=== PATIENT | female | born 1955 | race Caucasian/White ===

== ENCOUNTER 2017-09-15 05:12 | Emergency (ER) | payer BC ==
[2017-09-15] MEDS ORDERED: Aspirin 81 MG Tab.Chew PO ONE (05:18)
--- NOTE | 2017-09-15 05:41 | EDM.PDOC ---
ED HPI GENERAL MEDICAL PROBLEM - General Chief Complaint: Cardiovascular Problem Stated Complaint: CHEST PAIN Time Seen by Provider: 09/15/17 05:35 Source of Information: Reports: Patient History Limitations: Reports: No Limitations - History of Present Illness INITIAL COMMENTS - FREE TEXT/NARRATIVE: PT ARRIVED WITH A HISTORY OF AT LEAST 2.5 HOURS OF CHEST PRESSURE. sHE WAS ASLEEP AND WAS AWAKENED AT ABOUT 2 AM WITH CHEST PRESSURE. sHE WAS NOT SOB. sHE DID NOT HAVE [place] CHEST PAIN. sHE HAS NO CARDIAC HISTORY. sHE DID FEEL LIKE HER HEART WAS BEATING SOMEWHAT IRATIC. sHE HAS BEEN UNDER A GREAT DEAL OF STRESS BOTH AT HOME AND AT WORK. Onset: Today, Other ( STARTED AT 2 AM. ) Duration: Hour(s):, Other (PT HAS PRESSURE FOR ABOUT 2.5 HOURS. sHE IS PAIN SIDNEY AT THIS TIME. ) Location: Reports: Chest Associated Symptoms: Reports: Chest Pain, Other ( tHIS IS A PRESSURE SENSATION) - Related Data Allergies Allergy/AdvReac Type Severity Reaction Status Date / Time No Known Allergies Allergy Verified 09/15/17 05:37 Home Meds: Home Meds NK [No Known Home Meds] 09/15/17 [History] Social & Family History - Tobacco Use Smoking Status *Q: Never Smoker - Caffeine Use Caffeine Use: Reports: Coffee, Soda, Tea - Recreational Drug Use Recreational Drug Use: No ED ROS GENERAL - Review of Systems Review Of Systems: See Below Constitutional: Reports: No Symptoms HEENT: Reports: No Symptoms Respiratory: Reports: No Symptoms Cardiovascular: Reports: Other (PT HAD ABOUT 2.5 HOURS OF CHEST PRESSURE. V) Endocrine: Reports: No Symptoms GI/Abdominal: Reports: No Symptoms, Other ( sHE DOES ADMIT TO DOING A FAIR AMOUNT OF DRINKING YESTERDAY. ) : Reports: No Symptoms Musculoskeletal: Reports: No Symptoms Skin: Reports: No Symptoms ED EXAM, GENERAL - Physical Exam Exam: See Below Free Text/Narrative:: pT ARRIVED WITH A HISTORY OF A EPISODE OF CHEST PRESSURE. tHIS DID AWAKEN TH PT AT ABOUT 2 am. sHE HAD ABOUT 2.5 HOURS OF CHEST PRESSURE. sHE FELT LIKE SOMEONE WAS SITTING ON HER CHEST. Exam Limited By: No Limitations General Appearance: Alert, No Apparent Distress, Anxious, Other (PT HAS NO PRESSURE AT THIS TIME. sH THINKS IT STOPPED ABOUT 4 THIRTY. ) Ears: Normal TMs Nose: Normal Inspection Throat/Mouth: Normal Inspection Head: Atraumatic Neck: Normal Inspection Respiratory/Chest: No Respiratory Distress Cardiovascular: Regular Rate, Rhythm, Other ( PT DOES SEEM TO HAVE A VARIABLE RATE UP IN THE 120S AND THEN WILL GO DOWN TO THE 80S. ) GI/Abdominal: Soft, Non-Tender (Female) Exam: Deferred Rectal (Female) Exam: Deferred Back Exam: Normal Inspection Extremities: Normal Inspection Neurological: Alert, Oriented, Normal Cognition Psychiatric: Anxious Course - Vital Signs Last Recorded V/S: Last Vital Signs Temp 36.2 C 09/15/17 05:30 Pulse 90 09/15/17 05:30 Resp 17 09/15/17 05:30 BP 193/89 H 09/15/17 05:30 Pulse Ox 96 09/15/17 05:30 - Orders/Labs/Meds Orders: Active Orders 24 hr Category Date Time Status EKG Documentation Completion [RC] ASDIRECTED Care 09/15/17 05:18 Active Chest 1V Frontal [CR] Stat Exams 09/15/17 05:18 Taken EKG 12 Lead [EK] Routine Ther 09/15/17 05:17 Ordered Labs: Laboratory Tests 09/15/17 09/15/17 09/15/17 Range/Units 05:25 05:25 05:25 WBC 4.8 (4.5-11.0) K/uL RBC 3.96 (3.30-5.50) M/uL Hgb 13.3 (12.0-15.0) g/dL Hct 39.4 (36.0-48.0) % MCV 100 H (80-98) fL MCH 34 H (27-31) pg MCHC 34 (32-36) % Plt Count 279 (150-400) K/uL Neut % (Auto) 48 (36-66) % Lymph % (Auto) 40 (24-44) % [place] % (Auto) 10 H (2-6) % Eos % (Auto) 2 (2-4) % Baso % (Auto) 1 (0-1) % Sodium (140-148) mmol/L Potassium (3.6-5.2) mmol/L Chloride (100-108) mmol/L Carbon Dioxide (21-32) mmol/L Anion Gap (5.0-14.0) mmol/L BUN (7-18) mg/dL Creatinine (0.6-1.0) mg/dL Est Cr Clr Drug Dosing mL/min Estimated GFR (MDRD) (>60) Glucose (74-106) mg/dL Calcium (8.5-10.1) mg/dL Magnesium (1.8-2.4) mg/dL Total Bilirubin (0.2-1.0) mg/dL AST (15-37) U/L ALT (12-78) U/L Alkaline Phosphatase (46-116) U/L Creatine Kinase 67 (26-192) U/L Troponin I < 0.017 (0.000-0.056) ng/mL Total Protein (6.4-8.2) g/dL Albumin (3.4-5.0) g/dL Globulin (2.3-3.5) g/dL Albumin/Globulin Ratio (1.2-2.2) 09/15/17 09/15/17 Range/Units 05:25 06:28 WBC (4.5-11.0) K/uL RBC (3.30-5.50) M/uL Hgb (12.0-15.0) g/dL Hct (36.0-48.0) % MCV (80-98) fL MCH (27-31) pg MCHC (32-36) % Plt Count (150-400) K/uL Neut % (Auto) (36-66) % Lymph % (Auto) (24-44) % [place] % (Auto) (2-6) % Eos % (Auto) (2-4) % Baso % (Auto) (0-1) % Sodium 142 (140-148) mmol/L Potassium 4.1 (3.6-5.2) mmol/L Chloride 104 (100-108) mmol/L Carbon Dioxide 26 (21-32) mmol/L Anion Gap 11.8 (5.0-14.0) mmol/L BUN 19 H (7-18) mg/dL Creatinine 0.8 (0.6-1.0) mg/dL Est Cr Clr Drug Dosing 58.77 mL/min Estimated GFR (MDRD) > 60 (>60) Glucose 104 (74-106) mg/dL Calcium 9.3 (8.5-10.1) mg/dL Magnesium 1.9 (1.8-2.4) mg/dL Total Bilirubin 0.9 (0.2-1.0) mg/dL AST 33 (15-37) U/L ALT 26 (12-78) U/L Alkaline Phosphatase 89 (46-116) U/L Creatine Kinase (26-192) U/L Troponin I (0.000-0.056) ng/mL Total Protein 7.7 (6.4-8.2) g/dL Albumin 3.9 (3.4-5.0) g/dL Globulin 3.8 H (2.3-3.5) g/dL Albumin/Globulin Ratio 1.0 L (1.2-2.2) Meds: Medications Discontinued Medications Generic Name Dose Route Start Last Admin Trade Name Freq PRN Reason Stop Dose Admin Aspirin 324 mg 09/15/17 05:18 09/15/17 05:38 Aspirin PO 09/15/17 05:19 324 mg ONETIME ONE Administration - Re-Assessments/Exams Free Text/Narrative Re-Assessment/Exam: 09/15/17 06:46 pt had normal cardiac enzymes, her ekg was normal. She did have several episodes of sinus tach after arrival with rates up in the 130s. Departure - Departure Time of Disposition: 06:56 Disposition: Home, Self-Care 01 Condition: Fair Clinical Impression: Atypical chest pain Referrals: PCP,None [Primary Care Provider] - Forms: ED Department Discharge Care Plan Goals: rtc for a exercise cardiolyte, rtc if pt should have further episodes of chest pressure. - My Orders Last 24 Hours: My Active Orders 09/15/17 05:17 EKG 12 Lead [EK] Routine 09/15/17 05:18 EKG Documentation Completion [RC] ASDIRECTED Chest 1V Frontal [CR] Stat - Assessment/Plan Last 24 Hours: My Active Orders 09/15/17 05:17 EKG 12 Lead [EK] Routine 09/15/17 05:18 EKG Documentation Completion [RC] ASDIRECTED Chest 1V Frontal [CR] Stat
--- NOTE | 2017-09-16 08:27 | CR ---
Chest 1V Frontal INDICATION: CHEST PRESSURE. FINDINGS: Negative AP portable chest x-ray.
== END 2017-09-15 07:18 | disposition home or self-care (01) ==
LOC: JP.ED 05:12
DX: R07.89 Other chest pain (principal)
CPT/HCPCS: 36415; 71010; 80053; 82550; 83735; 84484; 85025; 93005; 99285; A9270